=== PATIENT | female | born 1945 | race Caucasian/White ===

== ENCOUNTER → 2017-05-01 | Outpatient (CLI) | payer MEDICARE | END | disposition home or self-care (01) | LOC: CFH 13:21 | PROVIDERS: ATTEND Nurse Practitioner Family | DX: Z12.31 Encounter for screening mammogram for malignant neoplasm of breast (principal) | CPT/HCPCS: 77063; G0202 ==

== ENCOUNTER → 2017-06-09 | Outpatient (CLI) | payer MEDICARE | END | disposition home or self-care (01) | LOC: WOUND 10:21 | PROVIDERS: ATTEND Internal Medicine | DX: E11.622 Type 2 diabetes mellitus with other skin ulcer (principal); L98.491 Non-pressure chronic ulcer of skin of other sites limited to breakdown of skin; E11.40 Type 2 diabetes mellitus with diabetic neuropathy, unspecified; I10 Essential (primary) hypertension; E78.5 Hyperlipidemia, unspecified | CPT/HCPCS: 11042; G0463; WOU0463 ==

== ENCOUNTER → 2017-06-16 | Outpatient (CLI) | payer MEDICARE | END | disposition home or self-care (01) | LOC: WOUND 10:41 | PROVIDERS: ATTEND Internal Medicine | DX: E11.622 Type 2 diabetes mellitus with other skin ulcer (principal); L98.491 Non-pressure chronic ulcer of skin of other sites limited to breakdown of skin; E11.40 Type 2 diabetes mellitus with diabetic neuropathy, unspecified; I10 Essential (primary) hypertension; E78.5 Hyperlipidemia, unspecified | CPT/HCPCS: 97597 ==

== ENCOUNTER → 2017-06-23 | Outpatient (CLI) | payer MEDICARE | END | disposition home or self-care (01) | LOC: WOUND 10:24 | PROVIDERS: ATTEND Internal Medicine | DX: E11.622 Type 2 diabetes mellitus with other skin ulcer (principal); L98.491 Non-pressure chronic ulcer of skin of other sites limited to breakdown of skin; E11.40 Type 2 diabetes mellitus with diabetic neuropathy, unspecified; I10 Essential (primary) hypertension; E78.5 Hyperlipidemia, unspecified | CPT/HCPCS: 11042 ==

== ENCOUNTER → 2017-07-07 | Outpatient (CLI) | payer MEDICARE | END | disposition home or self-care (01) | LOC: WOUND 09:30 | PROVIDERS: ATTEND Internal Medicine | DX: S31.104D Unspecified open wound of abdominal wall, left lower quadrant without penetration into peritoneal cavity, subsequent encounter (principal); E11.40 Type 2 diabetes mellitus with diabetic neuropathy, unspecified; I10 Essential (primary) hypertension; E78.5 Hyperlipidemia, unspecified; Z87.891 Personal history of nicotine dependence; Z72.89 Other problems related to lifestyle; Z90.710 Acquired absence of both cervix and uterus; X58.XXXD Exposure to other specified factors, subsequent encounter | CPT/HCPCS: 97597 ==

== ENCOUNTER → 2017-07-21 | Outpatient (CLI) | payer MEDICARE | END | disposition home or self-care (01) | LOC: WOUND 09:23 | PROVIDERS: ATTEND Internal Medicine | DX: S31.104D Unspecified open wound of abdominal wall, left lower quadrant without penetration into peritoneal cavity, subsequent encounter (principal); E11.40 Type 2 diabetes mellitus with diabetic neuropathy, unspecified; I10 Essential (primary) hypertension; E78.5 Hyperlipidemia, unspecified; Z87.891 Personal history of nicotine dependence; Z72.89 Other problems related to lifestyle; Z90.710 Acquired absence of both cervix and uterus; X58.XXXD Exposure to other specified factors, subsequent encounter | CPT/HCPCS: G0463; WOU0463 ==

== ENCOUNTER → 2018-06-12 | Outpatient (CLI) | payer MEDICARE | END | disposition home or self-care (01) | LOC: CFH 09:13 | PROVIDERS: ATTEND Nurse Practitioner Family | DX: Z12.31 Encounter for screening mammogram for malignant neoplasm of breast (principal) | CPT/HCPCS: 77063; 77067 ==

== ENCOUNTER → 2019-06-28 | Outpatient (CLI) | payer MEDICARE | END | disposition home or self-care (01) | LOC: CFH 11:05 | PROVIDERS: ATTEND Nurse Practitioner | DX: M17.12 Unilateral primary osteoarthritis, left knee (principal); M25.462 Effusion, left knee; M48.00 Spinal stenosis, site unspecified ==

== ENCOUNTER 2020-12-17 10:19 | Emergency (ER) | payer MEDICARE ==
[~2020-12-17] VITALS: Ht 149.9 cm; Wt 82.1 kg
--- NOTE | 2020-12-17 10:39 | NUR ---
PT AMBULATORY TO ROOM FROM TRIAGE, MONITORS IN PLACE. PT STATES SHE WENT TO THIS MORNING AND IMAGING SHOWED R-WRIST FX. PT STATES SHE FELL AROUND 0630 THIS AM LETTING HER DOGS OUT. PT AXOX4. CALL LIGHT WITHIN REACH.
--- NOTE | 2020-12-17 10:43 | NUR ---
ERP AT BS FOR EVAL
[2020-12-17] MEDS ORDERED: ONDANSETRON 2MG/ML, 2ML IVPush ONE (11:00)
[2020-12-17] MEDS ORDERED: PROPOFOL 10 MG/ML, 20ML IVPush ONE (11:00)
[2020-12-17] MEDS ORDERED: KETAMINE 100 MG/ML, 5ML IV ONE (11:00)
[2020-12-17] MEDS ORDERED: PROPOFOL 10 MG/ML, 20ML ONE (11:25)
[2020-12-17] MEDS ORDERED: ONDANSETRON 2MG/ML, 2ML ONE (11:25)
--- NOTE | 2020-12-17 11:45 | NUR ---
PT SITTING ON BRIE VELIZ/LAVON. PT UPDATED ON POC/PROCEDURE. BROTHER IN LAW AT BS. NO NEEDS AT THIS TIME
--- NOTE | 2020-12-17 12:35 | NUR ---
1157- TIME OUT, ERP AT BS-PT & PROCEDURE VERIFIED 1200- PT GIVEN 40MG PROPOFOL & 30MG KETAMINE 1201- CLOSED REDUCTION PERFORMED BY DR AVELAR 1225- PT BACK TO BASELINE, AXOX4, C/O PAIN IN R-WRIST 1230- 160MG PROPOFOL & 400MG KETAMINE WASTED WITH NITO TANNER
--- NOTE | 2020-12-17 13:15 | NUR ---
ERP AT FOR RECHECK
--- NOTE | 2020-12-17 13:27 | NUR ---
PT [facility]ING ON [employer], BACK TO BASELINE, NEPHEW AT BS. PT C/O R-WRIST PAIN BUT EXPECTED. NADN/VSS. CALL LIGHT WITHIN REACH
[2020-12-17 13:35] VITALS: BP 150/62
[2020-12-17] MEDS ORDERED: HYDROcodone/APAP 5/325 TABLET ONE (13:53)
[2020-12-17] MEDS ORDERED: HYDROcodone/APAP 5/325 TABLET PO ONE (14:00)
--- NOTE | 2020-12-17 14:03 | NUR ---
BREAK RN: PT MEDICATED PER EMAR, DECLINED TO STAY FOR FURTHER OBSERVATION. PT AND FAMILY VERBALIZED UNDERSTANDING OF DC INSTRUCTIONS. PT AMBULATORY W/ A STEADY GAIT. RESP EVEN AND UNLABORED, NADN.
== END 2020-12-17 14:05 | disposition home or self-care (01) ==
LOC: ED 12:51
DX: S52.591A Other fractures of lower end of right radius, initial encounter for closed fracture (principal); I10 Essential (primary) hypertension; E11.9 Type 2 diabetes mellitus without complications; W18.30XA Fall on same level, unspecified, initial encounter; Y93.89 Activity, other specified; Y92.9 Unspecified place or not applicable; Y99.8 Other external cause status
CPT/HCPCS: 25605; 99152; 99285

== ENCOUNTER 2020-12-29 00:50 | Emergency (ER) | payer MEDICARE ==
[~2020-12-29] VITALS: Ht 149.9 cm; Wt 82.9 kg
[2020-12-29 00:51] VITALS: BP 137/62
[2020-12-29] MEDS ORDERED: HYDROcodone/APAP 5/325 TABLET PO STA (01:11)
--- NOTE | 2020-12-29 01:17 | NUR ---
RECENT WRIST RT FX, WAS SEEN AT THE [facility] AND HAD SPLINT PLACED. PT PRESENTS WITH BLUE DISCOLORATION AND ECCHYMOSIS FINGERS AND PAIN FROM SPLINT BEING TOO TIGHT. CAST TAKEN OFF IN TRIAGE AND BANDAGES REMOVED IN ROOM BY .
[2020-12-29] MEDS ORDERED: HYDROcodone/APAP 5/325 TABLET ONE (01:30)
[2020-12-29] MEDS ORDERED: OXYcodone/APAP 5/325MG TABLET ONE (02:06)
[2020-12-29] MEDS ORDERED: OXYcodone/APAP 5/325MG TABLET PO ONE (02:30)
[2020-12-30] MEDS ORDERED: OXYC1TAB17 PO (20:59)
[2020-12-31] MEDS ORDERED: LOSA25TA25 PO (01:30)
[2020-12-31] MEDS ORDERED: ASPI-963 PO (01:30)
[2020-12-31] MEDS ORDERED: LIRA0.6P2 INJ (01:30)
[2020-12-31] MEDS ORDERED: CHOLESTEROL MED (01:30)
[2020-12-31] MEDS ORDERED: METF500T17 PO (01:30)
[2020-12-31] MEDS ORDERED: DAPA10TA PO (03:45)
[2020-12-31] MEDS ORDERED: [UNRECOGNIZED DRUG - CODE] PO (03:45)
[2020-12-31] MEDS ORDERED: GLIM4TAB8 PO (03:45)
[2020-12-31] MEDS ORDERED: POTA20TA14 PO (03:45)
[2020-12-31] MEDS ORDERED: HYDR-3237 PO (03:45)
[2020-12-31] MEDS ORDERED: SIMV40TA20 PO (03:45)
[2020-12-31] MEDS ORDERED: METF10007 PO (03:45)
[2020-12-31] MEDS ORDERED: GABA600T7 PO (12:15)
[2020-12-31] MEDS ORDERED: FURO40TA6 PO (12:15)
== END 2020-12-29 02:38 | disposition home or self-care (01) ==
LOC: ED 01:08
DX: G89.11 Acute pain due to trauma (principal); M25.531 Pain in right wrist; I10 Essential (primary) hypertension; E11.9 Type 2 diabetes mellitus without complications; X58.XXXA Exposure to other specified factors, initial encounter; Y93.89 Activity, other specified; Y92.89 Other specified places as the place of occurrence of the external cause; Y99.8 Other external cause status
CPT/HCPCS: 29125; 99283